=== PATIENT | male | born 1980 | race Caucasian/White ===

== ENCOUNTER → 2017-06-16 | Day surgery (SDC) | payer OTHER ==
[~2017-06-16] VITALS: Ht 188 cm; Wt 88.7 kg
[~2017-06-16] MED LIST: *morphine SULFATE 8 MG/ML PERIprocedure ONLY ONE; CEPH-459 PO; CHLORHEXIDINE GLUCONATE 2 % 1 PACK (2 CLOTHS) TOPICAL PRN; DEXAMETHASONE SOD PHOS 4 MG/ML VIAL ONE; DO NOT ADM ANY ANTICOAGULANT DRUGS PRN; FAMOTIDINE 20 MG/2 ML VIAL ONE; INSULIN HUMAN REGULAR 1,000 UNITS/10 ML VIAL SQ PRN; LACTATED RINGER'S 1000 ML INJ 1,000 ML IV ONE; LACTATED RINGER'S 1000 ML IV PRN; MEPERIDINE HCL 25 MG/ML VIAL ONE; METOPROLOL TARTRATE 25 MG TAB PO PRN; MIDAZOLAM HCL 2 MG/2 ML VIAL ONE; NEOSTIGMINE 3 MG/3 ML SYR IV ONE; ONDANSETRON HCL 4 MG/2 ML VIAL IV PUSH ONE; ONDANSETRON HCL 4 MG/2 ML VIAL IV PUSH PRN; PERC5TAB12 PO; POVIDONE IODINE 5% (ANTISEPSIS KIT) 4 APPLICATIONS EACH NARE PRN; PROPOFOL 200 MG/20 ML AMP IV ONE; SODIUM CHLORID 0.9% 500 ML IV PRN; ceFAZolin 2 GM PREMIX 50 ML IV SCH; ePHEDrine/NS 25 MG/5 ML SYR IV ONE; fentaNYL CITRATE 250 MCG/5 ML AMP ONE; oxyCODONE/ACETAMINOPHEN 5 MG/325 MG TAB PO PRN
[2017-06-16 06:26] VITALS: BP 141/89; PULSE 84; RESP 16; TEMP 97.8; O2SAT 98
[2017-06-16 06:49] LABS: AUTOMATED NEUTROPHIL # 3.2 TH/MM3 (1.8-7.7); BASOPHIL # 0.1 TH/MM3 (0-0.2); BASOPHIL % 0.9 % (0.0-2.0); EOSINOPHIL # 0.3 TH/MM3 (0-0.4); EOSINOPHIL % 5.4 % (0.0-4.0); HEMATOCRIT 43.5 % (39.0-51.0); HEMO FLAGS DIFF FINAL; LYMPH % 27.9 % (9.0-44.0); LYMPHOCYTE # 1.6 TH/MM3 (1.0-4.8); MEAN CELL VOLUME 87.7 FL (80.0-100.0); MEAN CORPUSCULAR HEMOGLOBIN 31.1 PG (27.0-34.0); MEAN CORPUSCULAR HGB CONC 35.4 % (32.0-36.0); MONO % 9.9 % (0.0-8.0); NEUT % 55.9 % (16.0-70.0); PLATELET COUNT 135 TH/MM3 (150-450); RED BLOOD COUNT 4.96 MIL/MM3 (4.50-5.90); RED CELL DISTRIBUTION WIDTH 13.4 % (11.6-17.2); WHITE BLOOD COUNT 5.7 TH/MM3 (4.0-11.0)
--- NOTE | 2017-06-16 08:50 | PD.OP ---
cc: Perez Reyes MD Operative Report Date of Surgery: Jun 16, 2017 Preoperative Diagnosis: (1) Mass of right testis Postoperative Diagnosis: (1) Mass of right testis Procedure: Right radical orchiectomy Anesthesia: General Surgeon: Rashaad Ramos General Inspector(s): Pito streeterorthodontic technician assistant Operation and Findings: Indication for procedure: The case of a pleasant 37-year-old gentleman with recent development of a right testicular mass suspicious for malignancy. Patient presents now to undergo a right radical orchiectomy. Operative procedure in detail: Patient was brought to the operating suite and placed supine on the or table. He was next placed and general anesthesia. He was then prepped and draped in normal sterile fashion. After appropriate timeout was undertaken I proceeded with making a small transverse right inguinal incision measuring approximately 4 cm in length with a #15 blade. Incision was extended down to the underlying external oblique fascia using the Bovie cautery. The external ring was identified and a right angle clamp was introduced into the ring and gently spread to separate the external oblique fascia from other structures including the ilioinguinal nerve. Using #15 blade I carefully incised the external oblique fascia paralleling the direction of the fibers for a distance of approximately 4 cm. The spermatic cord was identified and mobilized and a 3/8 inch [place] drain was utilized to facilitate traction. The spermatic cord was mobilized from the internal ring all the way down to the scrotal region. The testicle was next pushed upwards and delivered through the inguinal incision and the gubernacular attachments transected. Inspection was made to see if there was a hernia sac present and none was noted. The spermatic cord was divided and ligated at its most superior aspect utilizing a 0 suture tie. Long tails were left on the suture to facilitate identification of this site in the future if necessary. The specimen was handed off to pathology. Next the external oblique was reapproximated utilizing a running 2-0 Vicryl suture starting superior and working inferiorly and a new external ring was created. The subcutaneous tissue was reapproximated with interrupted 3-0 chromic suture material. The skin edges then reapproximated in subcuticular fashion utilizing 4-0 undyed Vicryl. Mastisol and Steri-Strips were applied. The patient tolerated the procedure without complications and was transferred to the PACU in satisfactory condition. Rashaad Ramos MD Jun 16, 2017 08:50
[2017-06-16 10:30] VITALS: BP 143/74; PULSE 84; RESP 20; TEMP 97.9; O2SAT 98
== END | disposition home or self-care (01) ==
LOC: HSDC 05:35
PROVIDERS: ATTEND Urology
DX: C62.91 Malignant neoplasm of right testis, unspecified whether descended or undescended (principal); Z01.818 Encounter for other preprocedural examination
CPT/HCPCS: 00926; 54530; 85025; 88309; J0690; J1100; J2175; J2250; J2270; J2405; J2710; J3010; J7120

== ENCOUNTER → 2017-06-27 | Outpatient (CLI) | payer SELFPAY ==
[~2017-06-27] MED LIST changes: -*morphine SULFATE 8 MG/ML PERIprocedure ONLY ONE; -CHLORHEXIDINE GLUCONATE 2 % 1 PACK (2 CLOTHS) TOPICAL PRN; -DEXAMETHASONE SOD PHOS 4 MG/ML VIAL ONE; -DO NOT ADM ANY ANTICOAGULANT DRUGS PRN; -FAMOTIDINE 20 MG/2 ML VIAL ONE; -INSULIN HUMAN REGULAR 1,000 UNITS/10 ML VIAL SQ PRN; -LACTATED RINGER'S 1000 ML INJ 1,000 ML IV ONE; -LACTATED RINGER'S 1000 ML IV PRN; -MEPERIDINE HCL 25 MG/ML VIAL ONE; -METOPROLOL TARTRATE 25 MG TAB PO PRN; -MIDAZOLAM HCL 2 MG/2 ML VIAL ONE; -NEOSTIGMINE 3 MG/3 ML SYR IV ONE; -ONDANSETRON HCL 4 MG/2 ML VIAL IV PUSH ONE; -ONDANSETRON HCL 4 MG/2 ML VIAL IV PUSH PRN; -POVIDONE IODINE 5% (ANTISEPSIS KIT) 4 APPLICATIONS EACH NARE PRN; -PROPOFOL 200 MG/20 ML AMP IV ONE; -SODIUM CHLORID 0.9% 500 ML IV PRN; -ceFAZolin 2 GM PREMIX 50 ML IV SCH; -ePHEDrine/NS 25 MG/5 ML SYR IV ONE; -fentaNYL CITRATE 250 MCG/5 ML AMP ONE; -oxyCODONE/ACETAMINOPHEN 5 MG/325 MG TAB PO PRN
[2017-06-27 11:26] LABS: LDH SERUM 167 U/L (87-241)
[2017-06-27 11:29] LABS: BETA HCG TUMOR MARKER LESS THAN 1 MIU/ML (0-5)
== END ==
LOC: CLAB 10:39
PROVIDERS: ATTEND Urology
DX: C62.90 Malignant neoplasm of unspecified testis, unspecified whether descended or undescended (principal)
CPT/HCPCS: 36415; 82105; 83615; 84702